=== PATIENT | female | born 1945 | race Caucasian/White ===

== ENCOUNTER 2024-08-14 09:56 | Outpatient (CLI) | payer MEDICARE | END 2024-08-14 09:57 | disposition home or self-care (01) | LOC: CSHRAD 09:56 | PROVIDERS: ATTEND Internal Medicine | DX: R07.81 Pleurodynia (principal); R05.3 Chronic cough | CPT/HCPCS: 71046 ==

== ENCOUNTER 2024-11-08 07:57 | Outpatient (CLI) | payer MEDICARE | END 2024-11-08 07:58 | disposition home or self-care (01) | LOC: CSHMAMMO 07:57 | PROVIDERS: ATTEND Internal Medicine | DX: Z78.0 Asymptomatic menopausal state (principal); M81.0 Age-related osteoporosis without current pathological fracture | CPT/HCPCS: 77080 ==